=== PATIENT | male | born 1975 | race Caucasian/White ===

== ENCOUNTER 2023-01-24 06:54 | Outpatient (CLI) | payer OTHER, MEDICAID, SELFPAY ==
--- NOTE | 2023-01-24 07:17 | US_ITS ---
WS: [id number] THYROID ULTRASOUND HISTORY: HX OF MULTINODULAR GOITER COMPARISON: None available. Right lobe: 1.6 cm x 1.7 cm x 3.4 cm (w x ap x l). Volume: 4.9 cm3. Normal sized gland. There are multiple small nodules throughout the gland. There is a most consistent with colloid nodules. No mass or increased vascularity. Left lobe: 1.4 cm x 1.4 cm x 3.1 cm (w x ap x l). Volume: 3.2 cm3. Normal sized gland. There are multiple small cystic nodules which are subcentimeter throughout the gl and. These are probably colloid nodules. No solid mass. Isthmus: 0.1 cm. IMPRESSION: 1. Normal size gland without increased vascularity. 2. Numerous, very tiny, bilateral colloid nodules.
== END 2023-01-24 06:55 | disposition home or self-care (01) ==
LOC: RAD 06:56
PROVIDERS: PCP Nurse Practitioner; Visit Provider Family Medicine
DX: Z86.39 Personal history of other endocrine, nutritional and metabolic disease (principal)
CPT/HCPCS: 76536

== ENCOUNTER → 2023-04-10 10:35 | Outpatient (BNVA) | payer OTHER, MEDICAID, SELFPAY | PROVIDERS: PCP Nurse Practitioner; Referring Provider Nurse Practitioner; Visit Provider Nurse Practitioner | DX: E34.9 Endocrine disorder, unspecified (principal); E03.9 Hypothyroidism, unspecified | CPT/HCPCS: 80053; 80061; 82533; 82607; 82728; 83001; 83550; 84403; 84439; 84443; 84480; 85025; 86376 ==

== ENCOUNTER → 2023-04-14 09:56 | Outpatient (BNVA) | payer MEDICAID, SELFPAY | PROVIDERS: PCP Nurse Practitioner; Referring Provider Family Medicine; Visit Provider Internal Medicine | DX: R79.89 Other specified abnormal findings of blood chemistry (principal); E03.8 Other specified hypothyroidism; E06.3 Autoimmune thyroiditis; Z79.890 Hormone replacement therapy | CPT/HCPCS: 99204 ==

== ENCOUNTER → 2023-04-20 08:20 | Outpatient (BNVA) | payer MEDICAID, SELFPAY | PROVIDERS: PCP Nurse Practitioner; Referring Provider Nurse Practitioner; Visit Provider Nurse Practitioner | DX: E03.8 Other specified hypothyroidism (principal); E06.3 Autoimmune thyroiditis; R79.89 Other specified abnormal findings of blood chemistry | CPT/HCPCS: 81000; 82627; 82728; 84146; 84270; 84402; 84403; 84439; 84443; 84466; 84482; G0103 ==

== ENCOUNTER → 2023-06-02 09:34 | Outpatient (BNVA) | payer MEDICAID, SELFPAY | PROVIDERS: PCP Nurse Practitioner; Visit Provider Nurse Practitioner | DX: E03.8 Other specified hypothyroidism (principal); E06.3 Autoimmune thyroiditis; E34.9 Endocrine disorder, unspecified; R79.89 Other specified abnormal findings of blood chemistry; F41.1 Generalized anxiety disorder; F90.9 Attention-deficit hyperactivity disorder, unspecified type; R40.0 Somnolence | CPT/HCPCS: 82533; 82627; 82670; 84144; 84146; 84270; 84402; 84403; 84439; 84443; G0103 ==

== ENCOUNTER → 2023-06-14 17:52 | Outpatient (BNVA) | payer OTHER, MEDICAID, SELFPAY | PROVIDERS: PCP Nurse Practitioner; Visit Provider Nurse Practitioner Family | DX: R68.89 Other general symptoms and signs (principal); J11.1 Influenza due to unidentified influenza virus with other respiratory manifestations | CPT/HCPCS: 87400; 87426 ==

== ENCOUNTER → 2023-07-03 16:39 | Outpatient (BNVA) | payer OTHER, MEDICAID, SELFPAY | PROVIDERS: PCP Nurse Practitioner; Visit Provider Nurse Practitioner | DX: R10.9 Unspecified abdominal pain (principal) | CPT/HCPCS: 87338 ==